=== PATIENT | female | born 1940 | race Caucasian/White ===

== ENCOUNTER 2016-04-12 08:03 | Observation (INO) | payer MEDICARE, BC ==
[2016-04-12] VITALS (14 sets, daily range): BP systolic 105–129; BP diastolic 57–84; PULSE 63–79; RESP 16–34; TEMP 98.2–100.2; O2SAT 91–98
[~2016-04-12] VITALS: Ht 160 cm; Wt 66.3 kg
[2016-04-12] MEDS ORDERED: DIGO0.12 PO (08:18)
[2016-04-12] MEDS ORDERED: HYDR25TA35 PO (08:18)
[2016-04-12] MEDS ORDERED: COUM2.5T PO (08:18)
[2016-04-12] MEDS ORDERED: NADO20TA PO (08:18)
[2016-04-12] MEDS ORDERED: COUM5TAB PO (08:18)
[2016-04-12] MEDS ORDERED: OSEL30 PO (08:18)
[2016-04-12] MEDS ORDERED: GUAI1LIQ13 PO (08:18)
--- NOTE | 2016-04-12 08:22 | PD ---
HPI Chief Complaint: General Weakness Time Seen by Provider: 08:06 Travel History International Travel<30 days: No Contact w/Intl Traveler<30days: No Traveled to known affect area: No History of Present Illness HPI Patient is 75-year-old female presents the emergency department today with history of fatigue and difficulty ambulating secondary to fatigue. Patient states that she was on a cruise which ended yesterday and lasted cruise she was feeling the symptoms went to the cruise ship doctor who diagnosed her with a flu by swab. She's been on Tamiflu for the past 2 days. She's also endorses some mild nausea without vomiting. She states she is feeling quite rundown. Denies any chest pain shortness of breath abdominal pain and headache focal weakness. PFSH Past Medical History Hx Anticoagulant Therapy: Yes (COUMADIN) Atrial Fibrillation: Yes Heart Rhythm Problems: Yes Cardiac Catheterization: Yes Cardiovascular Problems: Yes (AFIB;PM;HTN) Diminished Hearing: No Hypertension: Yes Tetanus Vaccination: Unknown Influenza Vaccination: No ?: Not Past Surgical History Cardiac Surgery: Yes (PM) Other Surgery: Yes (SKIN CA REMOVED FROM NOSE) Social History Alcohol Use: Yes (SOCIALLY) Tobacco Use: No (FROMER) Substance Use: No Allergies-Medications (Allergen,Severity, Reaction): Coded Allergies: No Known Allergies (Unverified , 04/12/16) Reported Meds & Prescriptions Reported Meds & Active Scripts Active Reported Coditussin AC Liq (Guaifenesin-Codeine Liq) 200-10 Mg/5ML Liqd 5 Ml PO HS PRN Tamiflu (Oseltamivir Phosphate) 30 Mg Cap 30 Mg PO BID Digoxin 0.125 Mg Tab 0.125 Mg PO DAILY Nadolol 20 Mg Tab 20 Mg PO BID Hydralazine (Hydralazine HCl) 25 Mg Tab 25 Mg PO Take with a meal Coumadin (Warfarin) 2.5 Mg Tab 2.5 Mg PO DIRECTED Coumadin (Warfarin) 5 Mg Tab 5 Mg PO TUES/THURS Review of Systems Except as stated in HPI: all other systems reviewed are Neg Physical Exam Narrative GENERAL: Well-developed well-nourished in no apparent distress, appears ill. SKIN: Warm and dry. Decreased skin turgor HEAD: Atraumatic. Normocephalic. EYES: Pupils equal and round. No scleral icterus. No injection or drainage. ENT: No nasal bleeding or discharge. Mucous membranes pink and dry. NECK: Trachea midline. No JVD. CARDIOVASCULAR: Regular rate and rhythm. No murmur appreciated. RESPIRATORY: No accessory muscle use. Clear to auscultation. Breath sounds equal bilaterally. GASTROINTESTINAL: Abdomen soft, non-tender, nondistended. Hepatic and splenic margins not palpable. MUSCULOSKELETAL: No obvious deformities. No clubbing. No cyanosis. No edema. NEUROLOGICAL: Awake and alert. Cranial nerves II through XII grossly intact nonfocal, cerebellar testing negative, 5 out of 5 strength in all 4 extremities. Ambulates in the emergency department without ataxia appears generalized weak when stands up. PSYCHIATRIC: Appropriate mood and affect; insight and judgment normal. Data Data Last Documented VS Vital Signs Date Time Temp Pulse Resp B/P Pulse Ox O2 Delivery O2 Flow Rate FiO2 04/12/16 10:05 99.0 04/12/16 09:51 77 16 123/58 93 Room Air Orders Complete Blood Count With Diff (04/12/16 08:29) Comprehensive Metabolic Panel (04/12/16 08:29) Lipase (04/12/16 08:29) Lactic Acid (04/12/16 08:29) Prothrombin Time / Inr (Pt) (04/12/16 08:29) Act Partial Throm Time (Ptt) (04/12/16 08:29) Iv Access Insert/Monitor (04/12/16 08:29) Ecg Monitoring (04/12/16 08:29) Oximetry (04/12/16 08:29) Sodium Chlor 0.9% 1000 Ml Inj (Ns 1000 M (04/12/16 08:29) Sodium Chloride 0.9% Flush (Ns Flush) (04/12/16 08:30) Electrocardiogram (04/12/16 08:29) Acetaminophen (Tylenol) (04/12/16 08:30) Digoxin (04/12/16 08:29) Troponin I (04/12/16 08:29) Ckmb (Isoenzyme) Profile (04/12/16 08:29) Creatine Kinase (Cpk) (04/12/16 08:29) Chest, Pa & Lat (04/12/16 ) CKMB (04/12/16 08:00) CKMB% (04/12/16 08:00) Influenzae A/B Antigen (04/12/16 10:15) Electrocardiogram (04/12/16 ) Labs Laboratory Tests Test 04/12/16 04/12/16 08:00 08:05 White Blood Count 6.5 TH/MM3 Red Blood Count 4.25 MIL/MM3 Hemoglobin 13.6 GM/DL Hematocrit 40.7 % Mean Corpuscular Volume 95.8 FL Mean Corpuscular Hemoglobin 32.0 PG Mean Corpuscular Hemoglobin 33.4 % Concent Red Cell Distribution Width 13.8 % Platelet Count 152 TH/MM3 Mean Platelet Volume 7.8 FL Neutrophils (%) (Auto) 60.0 % Lymphocytes (%) (Auto) 29.9 % Monocytes (%) (Auto) 9.5 % Eosinophils (%) (Auto) 0.1 % Basophils (%) (Auto) 0.5 % Neutrophils # (Auto) 4.0 TH/MM3 Lymphocytes # (Auto) 1.9 TH/MM3 Monocytes # (Auto) 0.6 TH/MM3 Eosinophils # (Auto) 0.0 TH/MM3 Basophils # (Auto) 0.0 TH/MM3 CBC Comment DIFF FINAL Differential Comment Prothrombin Time 18.1 SEC Prothromb Time International 1.6 RATIO Ratio Activated Partial 30.7 SEC Thromboplast Time Sodium Level 139 MEQ/L Potassium Level 4.0 MEQ/L Chloride Level 104 MEQ/L Carbon Dioxide Level 26.7 MEQ/L Anion Gap 8 MEQ/L Blood Urea Nitrogen 12 MG/DL Creatinine 1.00 MG/DL Estimat Glomerular Filtration 54 ML/MIN Rate Random Glucose 113 MG/DL Calcium Level 8.1 MG/DL Total Bilirubin 0.4 MG/DL Aspartate Amino Transf 30 U/L (AST/SGOT) Alanine Aminotransferase 30 U/L (ALT/SGPT) Alkaline Phosphatase 55 U/L Total Creatine Kinase 364 U/L Creatine Kinase MB 1.0 NG/ML Creatine Kinase MB % 0.3 % Troponin I 0.03 NG/ML Total Protein 6.4 GM/DL Albumin 3.0 GM/DL Lipase 229 U/L Digoxin Level 1.3 NG/ML Lactic Acid Level 1.0 mmol/L [facility] Medical Decision Making Medical Screen Exam Complete: Yes Emergency Medical Condition: Yes Interpretation(s) EKG shows atrial fibrillation with intermittent demand pacing, there is [address] depression in V4 through V6 as well as T-wave inversion in lead 2. There is no elevation. This EKG is not evolving in the emergency department. Differential Diagnosis Dehydration, rhabdomyolysis, influenza, pneumonia, flulike illness, sepsis, ACS. Narrative Course Patient roomed in emergency department, she appears ill and fairly dehydrated. She was given a liter bolus of normal saline and began to feel somewhat better. Her friend arrives and states that she had to miss her flight because they wouldn't let her on the plane with a fever. States that she is having decreased ability to perform her ADLs at home. She does have an abnormal EKG without previous for comparison. Her heart doctor is in [place]. Patient was discussed with Dr. Garrett for observation status would recommend troponin trending and continued hydration. Diagnosis Primary Impression: Dehydration Additional Impressions: Fever Abnormal EKG Admitting Information Admitting Physician Requests: Observation Condition: Stable Paul Casanova MD Apr 12, 2016 08:22
[2016-04-12] MEDS ORDERED: SODIUM CHLOR 0.9% 1000 ML INJ 1,000 ML IV SCH (08:29)
[2016-04-12] MEDS ORDERED: SODIUM CHLORIDE 0.9% FLUSH 5 ML FLUSH IVF PRN (08:30)
[2016-04-12] MEDS ORDERED: ACETAMINOPHEN 325 MG TAB PO ONE (08:30)
[2016-04-12 09:00] LABS: BASOPHIL % 0.5 % (0.0-2.0); EOSINOPHIL % 0.1 % (0.0-4.0); HEMATOCRIT 40.7 % (35.0-46.0); HEMO FLAGS DIFF FINAL; LYMPH % 29.9 % (9.0-44.0); LYMPHOCYTE # 1.9 TH/MM3 (1.0-4.8); MEAN CELL VOLUME 95.8 FL (80.0-100.0); MEAN CORPUSCULAR HGB CONC 33.4 % (32.0-36.0); MONO % 9.5 % (0.0-8.0); PLATELET COUNT 152 TH/MM3 (150-450); RED BLOOD COUNT 4.25 MIL/MM3 (4.00-5.30); RED CELL DISTRIBUTION WIDTH 13.8 % (11.6-17.2); WHITE BLOOD COUNT 6.5 TH/MM3 (4.0-11.0)
[2016-04-12 09:08] LABS: CHLORIDE 104 MEQ/L (98-107); SODIUM (NA) 139 MEQ/L (136-145)
[2016-04-12 09:12] LABS: ANION GAP 8 MEQ/L (5-15); APTT (PATIENT) 30.7 SEC (24.3-30.1); BICARBONATE 26.7 MEQ/L (21.0-32.0); BLOOD UREA NITROGEN 12 MG/DL (7-18); INTERNATIONAL NORMALIZED RATIO 1.6 RATIO; PROTHROMBIN TIME - PATIENT 18.1 SEC (9.8-11.6)
[2016-04-12 09:15] LABS: ALT (GPT) 30 U/L (10-53); AST (GOT) 30 U/L (15-37); GLOMERULAR FILTRATION RATE 54 ML/MIN (>89)
[2016-04-12 09:16] LABS: TOTAL BILIRUBIN ADULT 0.4 MG/DL (0.2-1.0)
[2016-04-12 09:17] LABS: ALKALINE PHOSPHATASE 55 U/L (45-117); CREATINE KINASE 364 U/L (26-192)
--- NOTE | 2016-04-12 09:51 | RADHPO ---
EXAM DATE/TIME: 04/12/2016 09:28 [place] COMPARISON: No previous studies available for comparison. INDICATIONS : Fever, cough, weakness. MEDICAL HISTORY : None. SURGICAL HISTORY : Pacemaker. ENCOUNTER: Initial ACUITY: 3 days PAIN SCORE: 0/10 LOCATION: Bilateral chest FINDINGS: PA and lateral views of the chest demonstrate the lungs to be symmetrically aerated without evidence of mass, infiltrate or effusion. The cardiomediastinal contours are unremarkable. Osseous structure s are intact. There is a left subclavian AV sequential transvenous pacer in place. Atherosclerotic ca lcifications are present in the aorta. There are multiple overlying electrocardiogram leads. CONCLUSION: The lungs are clear with no evidence of pneumonia. Nikolas Stover MD on April 12, 2016 at 9:43 Board Certified Radiologist. This report was verified electronically.
[2016-04-12 10:17] LABS: DIGOXIN 1.3 NG/ML (0.8-2.0)
[2016-04-12] MEDS ORDERED: SODIUM CHLORIDE 0.9% FLUSH 5 ML FLUSH FLUSH PRN (10:45)
[2016-04-12] MEDS: OSELTAMIVIR PHOSPHATE 75 MG CAP PO SCH ×2 (10:45→20:37)
[2016-04-12] MEDS ORDERED: ONDANSETRON HCL 4 MG/2 ML VIAL IVP PRN (10:45)
[2016-04-12] MEDS ORDERED: NALOXONE HCL 0.4 MG/ML AMP IV PRN (10:45)
[2016-04-12] MEDS ORDERED: MAGNESIUM HYDROXIDE SUSP 30 ML CUP PO PRN (10:45)
[2016-04-12] MEDS ORDERED: ACETAMINOPHEN/HYDROcodone 325 MG/5 MG TAB PO PRN (10:45)
[2016-04-12 11:01] LABS: BLOOD, URINE SMALL (NEG); GLUCOSE,URINE NEG (NEG); KETONE, URINE NEG (NEG); PH, URINE 5.5 (5.0-8.5)
[2016-04-12 11:02] LABS: NITRITE,URINE POS (NEG)
[2016-04-12 11:03] LABS: URINE COLOR YELLOW (YELLW/STRAW)
[2016-04-12 11:10] LABS: MUCUS URINE OCC /lpf (OCC); RBC, URINE 0-3 /hpf (0-3)
[2016-04-12 11:11] LABS: BACTERIA, URINE MANY /hpf; COMMENT (UR) CULTURE INDICATED; CULTURE IF INDICATED CULTURE INDICATED
[2016-04-12] MEDS: ENOXAPARIN SODIUM 40 MG/0.4 ML SYRINGE SQ SCH (11:15)
[2016-04-12] MEDS: SODIUM CHLOR 0.9% 1000 ML INJ 1,000 ML IV SCH ×2 (11:15→20:37)
--- NOTE | 2016-04-12 16:21 | HHI.HP ---
[facility] Non-Staff Admission Diagnosis Dehydration, Abnormal EKG Diagnoses: (1) Low grade fever Diagnosis: Principal (2) Generalized weakness Diagnosis: Principal Chief Complaint: Generalized weakness Travel History International Travel<30 Days: No Contact w/Intl Traveler <30 Da: No Traveled to Known Affected Are: No History of Present Illness 75-year-old female with known history of hypertension, atrial fibrillation who presented to hospital because of weakness. Patient is visiting from out of city and just returned back from a cruise 3 days ago. She states that on the last day of the cruise she started developing ill with upper respiratory symptoms to include runny nose, sore throat, cough, laryngitis. The patient did go to cruise ship doctor and was treated with Tamiflu. Patient tried to get on the plane go back home yesterday, however because of fever they would not allow her to. Patient states that she had low-grade fever today, generalized weakness so she came to emergency department for evaluation. Patient had workup done which did show low-grade fever 100.2. CBC was normal, chemistries were normal, influenza testing was negative, chest x-ray was clear. EKG shows atrial fibrillation with demand pacing. At the time evaluating the patient she states that she is feeling better. She was given Tylenol and she is no longer have any low-grade fever. Physical therapy evaluated patient and she is walking 150 feet without any assistance. ER physician recommended patient be observed in the hospital for further recommendations. Review of Systems Constitutional: COMPLAINS OF: Fever, DENIES: Diaphoretic episodes, Fatigue, Weight gain, Weight loss, Chills, Dizziness, Change in appetite, Night Sweats Eyes: DENIES: Blurred vision, Diplopia, Eye inflammation, Eye pain, Vision loss , Double Vision Ears, nose, mouth, throat: COMPLAINS OF: Throat pain, Running Nose, DENIES: Vertigo, Nasal discharge, Ear Pain, Sinus Pain Respiratory: DENIES: Apneas, Cough, Snoring, Wheezing, Hemoptysis, Sputum production, Shortness of breath Cardiovascular: DENIES: Chest pain, Palpitations, Syncope, Dyspnea on Exertion , Lower Extremity Edema, Orthopnea Gastrointestinal: DENIES: Abdominal pain, Black stools, Bloody stools, Constipation, Diarrhea, Nausea, Vomiting, Difficulty Swallowing, Anorexia Genitourinary: DENIES: Abnormal vaginal bleeding, Dysmenorrhea, Dyspareunia, Sexual dysfunction, Urinary frequency, Urinary incontinence, Urgency, Hematuria , Dysuria, Nocturia, Vaginal discharge Neurologic: DENIES: Abnormal gait, Headache, Localized weakness, Paresthesias, Seizures, Speech Problems, Tremor, Poor Balance Psychiatric: DENIES: Anxiety, Confusion, Mood changes, Depression Past Family Social History Past Medical History Hypertension Chronic atrial fibrillation Past Surgical History Permanent pacemaker placement Skin cancer removed from her nose Reported Medications Reported Meds & Active Scripts Active Reported Coditussin AC Liq (Guaifenesin-Codeine Liq) 200-10 Mg/5ML Liqd 5 Ml PO HS PRN Tamiflu (Oseltamivir Phosphate) 30 Mg Cap 30 Mg PO BID Digoxin 0.125 Mg Tab 0.125 Mg PO DAILY Nadolol 20 Mg Tab 20 Mg PO BID Hydralazine (Hydralazine HCl) 25 Mg Tab 25 Mg PO Take with a meal Coumadin (Warfarin) 2.5 Mg Tab 2.5 Mg PO DIRECTED Coumadin (Warfarin) 5 Mg Tab 5 Mg PO TU/ Allergies: Coded Allergies: No Known Allergies (Unverified , 04/12/16) Family History Reviewed and significant for mother having stroke Social History Patient quit smoking 20 years ago, prior to that she smoked one pack a cigarettes a day since she was 13 years old. Patient denies any alcohol or illicit drugs Physical Exam Vital Signs Vital Signs Date Time Temp Pulse Resp B/P Pulse Ox O2 Delivery O2 Flow Rate FiO2 04/12/16 15:30 98.2 65 16 105/57 98 Room Air 04/12/16 15:24 16 95 Room Air 04/12/16 12:55 67 16 115/62 94 Room Air 04/12/16 12:20 78 16 94 Room Air 04/12/16 10:55 69 16 112/70 94 Room Air 04/12/16 10:15 79 18 93 Room Air 04/12/16 10:05 99.0 04/12/16 09:51 77 16 123/58 93 Room Air 04/12/16 09:50 93 Room Air 04/12/16 08:10 79 18 93 Room Air 04/12/16 08:07 100.2 79 18 128/66 93 Physical Exam GENERAL: Well-developed, well-nourished, in no acute distress. alert and orientated HEENT: Head is normocephalic without any lesions or masses noted. Facial features are symmetric. Eyes: Pupils equal round reactive to light. Extraocular muscles are intact. Conjunctivae were clear. Oropharyngeal: Pharynx without any erythema edema. Tongue is midline without deviation. Buccal mucosa is moist without any masses or lesions NECK: Supple without any masses. Trachea midline no deviation. No JVD, no bruits are appreciated CARDIAC: Regular rhythm, regular rate. S1/S2 are heard. No murmurs gallops or rubs. LUNGS: Clear to auscultation bilaterally. No wheeze, rhonchi or rales. No use of accessory muscles on inspiration or expiration. ABDOMEN: Soft, nontender. Nondistended. Bowel sounds heard in all 4 quadrants. No organomegaly or masses. Negative rebound, negative guarding EXTREMITIES: No edema, pulses are equal bilaterally. No cyanosis or clubbing NEUROLOGY: Mood and affect appear appropriate. Cranial nerves II through XII grossly intact. Muscle strength 5/5 in upper and lower extremities bilaterally. Deep tendon reflexes are 2+ in upper and lower extremities bilaterally. Laboratory Laboratory Tests Test 04/12/16 04/12/16 04/12/16 08:00 08:05 10:57 White Blood Count 6.5 Red Blood Count 4.25 Hemoglobin 13.6 Hematocrit 40.7 Mean Corpuscular Volume 95.8 Mean Corpuscular Hemoglobin 32.0 Mean Corpuscular Hemoglobin 33.4 Concent Red Cell Distribution Width 13.8 Platelet Count 152 Mean Platelet Volume 7.8 Neutrophils (%) (Auto) 60.0 Lymphocytes (%) (Auto) 29.9 Monocytes (%) (Auto) 9.5 Eosinophils (%) (Auto) 0.1 Basophils (%) (Auto) 0.5 Neutrophils # (Auto) 4.0 Lymphocytes # (Auto) 1.9 Monocytes # (Auto) 0.6 Eosinophils # (Auto) 0.0 Basophils # (Auto) 0.0 CBC Comment DIFF FINAL Differential Comment Prothrombin Time 18.1 Prothromb Time International 1.6 Ratio Activated Partial 30.7 Thromboplast Time Sodium Level 139 Potassium Level 4.0 Chloride Level 104 Carbon Dioxide Level 26.7 Anion Gap 8 Blood Urea Nitrogen 12 Creatinine 1.00 Estimat Glomerular Filtration 54 Rate Random Glucose 113 Calcium Level 8.1 Total Bilirubin 0.4 Aspartate Amino Transf 30 (AST/SGOT) Alanine Aminotransferase 30 (ALT/SGPT) Alkaline Phosphatase 55 Total Creatine Kinase 364 Creatine Kinase MB 1.0 Creatine Kinase MB % 0.3 Troponin I 0.03 Total Protein 6.4 Albumin 3.0 Lipase 229 Digoxin Level 1.3 Lactic Acid Level 1.0 Urine Color YELLOW Urine Turbidity HAZY Urine pH 5.5 Urine Specific [place] 1.021 Urine Protein 30 Urine Glucose (UA) NEG Urine Ketones NEG Urine Occult Blood SMALL Urine Nitrite POS Urine Bilirubin NEG Urine Leukocyte Esterase NEG Urine RBC 0-3 Urine WBC 3-5 Urine Bacteria MANY Urine Mucus OCC Microscopic Urinalysis Comment CULTURE INDICATED Date/Time Procedure Status Source Growth 04/12/16 10:57 Urine Culture Received Urine Clean Catch Pending 04/12/16 10:22 Influenza Types A,B Antigen (JENNIFER) - Final Complete Nasal Aspirate NEGATIVE FOR FLU A AND B ANTIGEN.... Result Diagram: 04/12/16 0800 04/12/16 0800 Imaging Last Impressions Chest X-Ray 04/12/16 0000 Signed Impressions: Service Date/Time: March 09:28 - CONCLUSION: The lungs are clear with no evidence of pneumonia. Nikolas Stover MD Assessment and Plan Assessment and Plan Low-grade fever, generalized weakness, sore throat, laryngitis: Likely secondary to adenovirus Supportive measures with Tylenol for fever control Continue Tamiflu Physical therapy evaluated patient and indicates patient is walking 150 feet without any assistance, no outpatient recommendations Hypertension Continue home medications Atrial fibrillation EKG shows atrial fibrillation with demand pacing, extensive STT changes which may due to hypertrophy and/or ischemia. Patient without any complaints of any chest pain, arrhythmia, palpitations, nausea, vomiting, diaphoresis. DVT prevention Patient on Coumadin INR 1.6 Written by Francis Ross PA-C, acting as scribe for Dr. Garrett on 04/12/16 at Time 1810. The documentation accurately reflects the work and decisions performed face-to- face by Dr. Garrett on 04/12/16 at 1810. Francis Ross Apr 12, 2016 16:21
--- NOTE | 2016-04-12 17:33 | HHI.DCPOC ---
Discharge Care Plan Diagnosis: (1) Low grade fever (2) Generalized weakness Goals to Promote Your Health * To prevent worsening of your condition and complications * To maintain your health at the optimal level Directions to Meet Your Goals Take your medications as prescribed Follow your dietary instruction Follow activity as directed Keep your appointments as scheduled Take your immunizations and boosters as scheduled If your symptoms worsen call your PCP, if no PCP go to Urgent Care Center or Emergency Room Smoking is Dangerous to Your Health. Avoid second hand smoke Call the 24-hour hour crisis hotline for domestic abuse at Francis Ross Apr 12, 2016 17:33
[2016-04-12] MEDS: SODIUM CHLORIDE 0.9% FLUSH 5 ML FLUSH FLUSH SCH (20:38)
[2016-04-12] MEDS: ACETAMINOPHEN 325 MG TAB PO PRN (23:25)
[2016-04-13 00:20] VITALS: BP 118/60; PULSE 60; RESP 25; TEMP 98.7; O2SAT 94
[2016-04-13 04:00] VITALS: BP 134/71; PULSE 82; RESP 26; TEMP 97.3; O2SAT 97
[2016-04-13] MEDS: SODIUM CHLOR 0.9% 1000 ML INJ 1,000 ML IV SCH (05:45)
[2016-04-13 08:00] VITALS: BP 142/68; PULSE 66; PULSE 70; RESP 26; TEMP 99.1; O2SAT 95
[2016-04-13] MEDS ORDERED: WARFARIN SOD 5 MG TAB PO ONE (08:00)
--- NOTE | 2016-04-13 08:04 | HHI.PR ---
Subjective Remarks Patient seen and examined today with Dr. Garrett. Patient denies any new complaints. Patient states that she feels much improved and very eager to go home. Objective Vitals Vital Signs Date Time Temp Pulse Resp B/P Pulse Ox O2 Delivery O2 Flow Rate FiO2 04/13/16 04:00 97.3 82 26 134/71 97 04/13/16 00:20 98.7 60 25 118/60 94 04/12/16 23:24 100.0 70 34 118/70 91 04/12/16 21:55 94 Nasal Cannula 2.00 04/12/16 20:00 78 04/12/16 19:31 99.4 64 27 124/59 95 04/12/16 18:50 64 16 124/62 96 Nasal Cannula 2 04/12/16 18:50 72 28 129/57 04/12/16 18:03 98.4 64 16 124/62 94 Room Air 04/12/16 18:03 64 16 94 Room Air 04/12/16 16:42 63 16 114/84 93 Nasal Cannula 2 04/12/16 15:30 98.2 65 16 105/57 98 Room Air 04/12/16 15:24 16 95 Room Air 04/12/16 12:55 67 16 115/62 94 Room Air 04/12/16 12:20 78 16 94 Room Air 04/12/16 10:55 69 16 112/70 94 Room Air 04/12/16 10:15 79 18 93 Room Air 04/12/16 10:05 99.0 04/12/16 09:51 77 16 123/58 93 Room Air 04/12/16 09:50 93 Room Air 04/12/16 08:10 79 18 93 Room Air 04/12/16 08:07 100.2 79 18 128/66 93 I/O 04/12/16 04/12/16 04/12/16 04/13/16 04/13/16 04/13/16 07:00 15:00 23:00 07:00 15:00 23:00 Intake Total 1050 ml 1278 ml 1140 ml Output Total 450 ml Balance 1050 ml 1278 ml 690 ml Intake Oral 60 ml 360 ml 240 ml IV Total 990 ml 918 ml 900 ml Output Urine Total 450 ml # Voids 2 1 Result Diagram: 04/12/16 0800 04/12/16 0800 Objective Remarks GENERAL: Well-developed, well-nourished, in no acute distress. alert and orientated HEENT: Head is normocephalic without any lesions or masses noted. Facial features are symmetric. Eyes: Extraocular muscles are intact. Conjunctivae were clear. NECK: Supple without any masses. Trachea midline no deviation. No JVD, no bruits are appreciated CARDIAC: Irregular rhythm, irregular rate. S1/S2 are heard. No murmurs gallops or rubs. LUNGS: Clear to auscultation bilaterally. No wheeze, rhonchi or rales. No use of accessory muscles on inspiration or expiration. ABDOMEN: Soft, nontender. Nondistended. Bowel sounds heard in all 4 quadrants. No organomegaly or masses. Negative rebound, negative guarding EXTREMITIES: No edema, pulses are equal bilaterally. No cyanosis or clubbing NEUROLOGY: Mood and affect appear appropriate. Cranial nerves II through XII grossly intact. Moving all extremities, speech is clear Urinary Catheter: No Vascular Central Line Catheter: No A/P Assessment and Plan Low-grade fever, generalized weakness, sore throat, laryngitis: Likely secondary to adenovirus Supportive measures with Tylenol for fever control Continue Tamiflu Physical therapy evaluated patient and indicates patient is walking 150 feet without any assistance, no outpatient recommendations Bacturia, possible uncomplicated urinary tract infection Urine culture is pending Start Ceftin 250 mg for 3 days Hypertension Continue home medications Atrial fibrillation EKG shows atrial fibrillation with demand pacing, extensive STT changes which may due to hypertrophy and/or ischemia. Patient without any complaints of any chest pain, arrhythmia, palpitations, nausea, vomiting, diaphoresis. Continued home medications Digoxin level is therapeutic Patient anticoagulated with Coumadin, INR mild subtherapeutic. Will give extra Coumadin 5 mg today DVT prevention Patient on Coumadin INR 1.6 Written by Francis Ross PA-C, acting as scribe for Dr. Garrett on 04/13/16 at Time 1309. The documentation accurately reflects the work and decisions performed face-to- face by Dr. Garrett on 04/13/16 at 1309. Discharge Planning Discharge home in stable condition Activity: Ad dillan. Diet: Healthy heart diet Medications per medication reconciliation Follow-up with primary medical doctor in one week Francis Ross Apr 13, 2016 08:04
[2016-04-13] MEDS ORDERED: COUM2.5T PO (08:06)
[2016-04-13] MEDS ORDERED: NADO20TA PO (08:06)
[2016-04-13] MEDS ORDERED: DIGO0.12 PO (08:06)
[2016-04-13] MEDS ORDERED: HYDR25TA35 PO (08:06)
[2016-04-13] MEDS ORDERED: CEFT250T8 PO (08:06)
[2016-04-13] MEDS ORDERED: COUM5TAB PO (08:06)
[2016-04-13] MEDS: SODIUM CHLORIDE 0.9% FLUSH 5 ML FLUSH FLUSH SCH (08:27)
[2016-04-13] MEDS: ACETAMINOPHEN 325 MG TAB PO PRN (08:29)
[2016-04-13] MEDS: OSELTAMIVIR PHOSPHATE 75 MG CAP PO SCH (08:29)
[2016-04-13 08:33] LABS: INTERNATIONAL NORMALIZED RATIO 1.6 RATIO; PROTHROMBIN TIME - PATIENT 18.6 SEC (9.8-11.6)
[2016-04-13] MEDS ORDERED: DO NOT ADM ANY ANTICOAGULANT DRUGS XX PRN (08:45)
[2016-04-13] MEDS ORDERED: PILL SPLITTER OTHER PRN (08:45)
[2016-04-13] MEDS ORDERED: DIGOXIN 0.125 MG TAB PO SCH (09:00)
[2016-04-13] MEDS ORDERED: hydrALAZINE HCL 25 MG TAB PO SCH (09:00)
[2016-04-13] MEDS ORDERED: NADOLOL 20 MG TAB PO SCH (09:00)
[2016-04-13] MEDS ORDERED: CEFUROXIME AXETIL 500 MG TAB PO SCH (09:00)
[2016-04-13] MEDS: ENOXAPARIN SODIUM 40 MG/0.4 ML SYRINGE SQ SCH (09:46)
[2016-04-13 12:00] VITALS: BP 131/66; PULSE 72; RESP 23; TEMP 97.9; O2SAT 96
[2016-04-13] MEDS ORDERED: WARFARIN SOD 2.5 MG TAB PO SCH (16:00)
--- NOTE | 2016-04-13 23:06 | EKG ---
Date Performed: 04/12/2016 Time Performed: 10:18:24 PTAGE: 75 years EKG: Atrial fibrillation Demand pacing Leftward axis Possible left ventricular hypertrophy Exten sive ST-T changes may be due to hypertrophy and/or ischemia Abnormal ECG PREVIOUS TRACING : 04/12/2016 08.34 DOCTOR: Mckenzie Hightower Interpretating Date/Time 04/13/2016 22:55:32
--- NOTE | 2016-04-13 23:07 | EKG ---
Date Performed: 04/12/2016 Time Performed: 08:34:56 PTAGE: 75 years EKG: Probable atrial fibrillation Demand pacing LVH with secondary repolarization abnormality Ex tensive ST-T changes may be due to hypertrophy and/or ischemia Abnormal ECG NO PREVIOUS TRACING DOCTOR: Mckenzie Hightower Interpretating Date/Time 04/13/2016 22:56:36
[2016-04-17] MEDS ORDERED: WARFARIN SOD 5 MG TAB PO SCH (16:00)
== END 2016-04-13 14:10 | disposition home or self-care (01) ==
LOC: PHED 08:03 → PHEDA 10:31 → PHEDH 17:39 → PHICU 18:45
PROVIDERS: ADMIT Family Medicine; ATTEND Family Medicine
DX: E86.0 Dehydration (principal); R53.83 Other fatigue; R53.1 Weakness; R11.0 Nausea; Z79.01 Long term (current) use of anticoagulants; I48.2 Chronic atrial fibrillation; I10 Essential (primary) hypertension; Z79.899 Other long term (current) drug therapy; R50.9 Fever, unspecified; R94.31 Abnormal electrocardiogram [ECG] [EKG]; Z95.0 Presence of cardiac pacemaker; J04.0 Acute laryngitis; J02.9 Acute pharyngitis, unspecified; B96.20 Unspecified Escherichia coli [E. coli] as the cause of diseases classified elsewhere
CPT/HCPCS: 71020; 80053; 80162; 81001; 82550; 82552; 83605; 83690; 84484; 85025; 85610; 85730; 87077; 87086; 87186; 87804; 93005; 94150; 94667; 96360; 97161; 99285; G0378; G8987; G8988; J1650; J7030